=== PATIENT | female | born 1980 | race American Indian/Alaskan Native ===

== ENCOUNTER 2018-10-02 20:30 | Inpatient (IN) | payer OTHER ==
--- NOTE | 2018-10-02 20:47 | Event Note ---
ED Screening Note Date of service: 10/02/18 Time: 20:43 ED Screening Note: This is a 38 y.o. F. that presents to the ER with abdominal pain radiating to left flank and vomiting since this morning. LMP 09/28/2018 This initial assessment/diagnostic orders/clinical plan/treatment(s) is/are subject to change based on patients health status, clinical progression and re- assessment by fellow clinical providers in the ED. Further treatment and workup at subsequent clinical providers discretion. Patient/guardian urged not to elope from the ED as their condition may be serious if not clinically assessed and managed. Initial orders include: Labs and CT of abdomen
[2018-10-02 21:10] LABS: Basophils % (Auto) 0.3 % (0.0-1.8); Hematocrit 36.5 % (30.3-42.9); Lymphocytes # (Auto) 1.1 K/mm3 (1.2-5.4); Lymphocytes % (Auto) 12.9 % (13.4-35.0); Mean Corpuscular HGB Conc 36 % (30-34); Mean Corpuscular Volume 84 fl (79-97); Monocytes # (Auto) 0.4 K/mm3 (0.0-0.8); Monocytes % (Auto) 4.2 % (0.0-7.3); Platelet Count 236 K/mm3 (140-440); Red Blood Count 4.35 M/mm3 (3.65-5.03); Red Cell Distribution Width 13.4 % (13.2-15.2)
--- NOTE | 2018-10-02 21:13 | Emergency Department Report ---
ED Abdominal Pain HPI - General Chief Complaint: Abdominal Pain Stated Complaint: ABD PAIN Time Seen by Provider: 10/02/18 21:10 Source: patient Mode of arrival: Ambulatory Limitations: No Limitations - History of Present Illness Initial Comments: Patient is a 38-year-old female that presents to emergency room with complaints of left lower quadrant pain 1 day. Patient states her symptoms started this morning at 9 AM. Patient states she has had nausea and vomiting 5 today. Patient states she's had brown vomiting. Patient denies blood in her stool and her vomitus. She states her pain is 10 out of 10. Patient states is nonradiating. Patient states the pain is better with rest and worse with palpation and vomiting MD Complaint: abdominal pain -: Sudden Location: LLQ Radiation: none Migration to: no migration Severity: severe Severity scale (0 -10): 10 Consistency: constant Improves With: rest Worsens With: vomiting, movement Associated Symptoms: nausea, vomiting. denies: diarrhea, fever, chills, constipation, dysuria, hematemesis, hematochezia, melena, hematuria, syncope - Related Data Allergies Allergy/AdvReac Type Severity Reaction Status Date / Time No Known Allergies Allergy Unverified 10/02/18 20:48 ED Review of Systems ROS: Stated complaint: ABD PAIN Other details as noted in HPI Constitutional: denies: chills, fever Eyes: denies: eye pain, eye discharge, vision change ENT: denies: ear pain, throat pain Respiratory: denies: cough, shortness of breath, wheezing Cardiovascular: denies: chest pain, palpitations Endocrine: no symptoms reported Gastrointestinal: denies: abdominal pain, nausea, diarrhea Genitourinary: denies: urgency, dysuria, discharge Musculoskeletal: denies: back pain, joint swelling, arthralgia Skin: denies: rash, lesions Neurological: denies: headache, weakness, paresthesias Psychiatric: denies: anxiety, depression Hematological/Lymphatic: denies: easy bleeding, easy bruising ED Past Medical Hx - Past Medical History Previous Medical History?: Yes Hx Kidney Stones: Yes - Surgical History Past Surgical History?: Yes Additional Surgical History: Fibroidectomy - Social History Smoking Status: Never Smoker Substance Use Type: None ED Physical Exam - General Limitations: No Limitations General appearance: alert, in no apparent distress - Head Head exam: Present: atraumatic, normocephalic - Eye Eye exam: Present: normal appearance - ENT ENT exam: Present: mucous membranes moist - Neck Neck exam: Present: normal inspection - Respiratory Respiratory exam: Present: normal lung sounds bilaterally. Absent: respiratory distress, wheezes, rales - Cardiovascular Cardiovascular Exam: Present: regular rate, normal rhythm. Absent: systolic murmur, diastolic murmur, rubs, gallop - GI/Abdominal GI/Abdominal exam: Present: soft, tenderness (left lower quadrant tenderness), normal bowel sounds - Extremities Exam Extremities exam: Present: normal inspection - Back Exam Back exam: Present: normal inspection - Neurological Exam Neurological exam: Present: alert, oriented X3 - Psychiatric Psychiatric exam: Present: normal affect, normal mood - Skin Skin exam: Present: warm, dry, intact, normal color. Absent: rash ED Course Vital Signs 10/02/18 10/02/18 10/02/18 20:43 21:13 21:15 Temperature 99.7 F H 99.1 F Pulse Rate 100 H 79 Respiratory 18 14 Rate Blood Pressure 140/75 124/78 Blood Pressure 124/78 [Left] O2 Sat by Pulse 100 99 100 Oximetry 10/02/18 10/02/18 10/03/18 22:00 23:00 01:01 Temperature Pulse Rate Respiratory Rate Blood Pressure 107/83 104/53 121/69 Blood Pressure [Left] O2 Sat by Pulse 100 100 99 Oximetry - Reevaluation(s) Reevaluation #1: Initial evaluation done. Patient's work place. Patient will be given Zofran and Dilaudid For pain. 10/02/18 21:10 Reevaluation #2: Patient is complaining of severe abdominal pain and patient given another dose of Dilaudid. 10/02/18 23:00 Reevaluation #3: Patient is complaining of severe left lower quadrant pain and nausea. Patient was given another dose of Dilaudid and Zofran. 10/03/18 00:58 Reevaluation #4: I discussed all results with patient. I discussed plan of care patient. Patient agrees to plan of care and admission. Patient will be admitted to the hospitalist service. Patient will have an NG placed 10/03/18 02:22 - Consultations Consultation #1: General surgery paged 10/03/18 02:[address] Valdez and she agrees with NG and fluids, admission to hospital service. 10/03/18 02:25 10/03/18 02:26 Consultation #2: Hospitalist consult for admission. Hospitalist to see the patient and admit patient. 10/03/18 02:16 ED Medical Decision Making - Lab Data Result diagrams: 10/02/18 20:50 10/02/18 20:50 - Radiology Data Radiology results: report reviewed CT abdomen pelvis wo/w con INDICATION / CLINICAL INFORMATION: abd pain. llq. 100 cc of Omnipaque 300 was administered intravenously TECHNIQUE: All CT scans at this location are performed using CT dose reduction for ALARA by means of automated exposure control. COMPARISON: None available. FINDINGS: A small hiatal hernia is present. Multiple dilated fluid-filled loops of small bowel are present with a transition point distally. There is a high density lesion seen anteriorly at the level the umbilicus. The gallbladder has been surgically removed. The liver, spleen, kidneys, pancreas, adrenal glands and great vessels are normal. In the pelvis, no free fluid is seen. The uterus is enlarged. No enlarged lymph nodes are seen. The bladder and the appendix are normal. IMPRESSION: 1. Dilated fluid-filled small bowel with a transition point distally consistent with small bowel obstruction. There is a high density lesion seen at the level of the umbilicus in the region of the obstruction. The graft 2. Cholecystectomy - Medical Decision Making Patient is 38-year-old female that presents emergent was a belted. Patient has CT done which shows bowel obstruction. Patient has required multiple doses of Zofran and pain medications. Patient is still having nausea and vomiting even after multiple doses of Zofran. General surgery consult. NG placed. - Differential Diagnosis SBO. Radiculitis. Left lower quadrant abdominal pain. Nausea vomiting Critical Care Time: Yes Critical care attestation.: If time is entered above; I have spent that time in minutes in the direct care of this critically ill patient, excluding procedure time. Critical Care Time: 45 minutes ED Disposition Clinical Impression: Intractable abdominal pain, SBO (small bowel obstruction) Abdominal pain Qualifiers: Abdominal location: left lower quadrant Qualified Code(s): R10.32 - Left lower quadrant pain Intractable nausea and vomiting Qualifiers: Vomiting type: unspecified Qualified Code(s): R11.2 - Nausea with vomiting, unspecified Disposition: -09 OP ADMIT IP TO THIS HOSP Is pt being admited?: Yes Does the pt Need Aspirin: No Condition: Critical Time of Disposition: 02:22
[2018-10-02 21:18] LABS: Alanine Aminotransferase 5 units/L (7-56); Albumin 4.6 g/dL (3.9-5); BUN/Creatinine Ratio 13; Blood Urea Nitrogen 9 mg/dL (7-17); Calcium 10.1 mg/dL (8.4-10.2); Hemolysis Index 2
[2018-10-02] MEDS ORDERED: DILAUDID IV ONE ×2 (21:29→22:57)
[2018-10-02 21:43] LABS: Bilirubin,Urine NEG (Negative); Blood,Urine MOD (Negative); Color,Urine Yellow (Yellow); Mucus,Urine FEW /HPF; Urobilinogen,Urine < 2.0 mg/dL (<2.0)
[2018-10-02] MEDS ORDERED: NACL 0.9% 1000 ML 1,000 ML ONE (22:03)
[2018-10-02] MEDS ORDERED: ZOFRAN ONE (22:03)
[2018-10-02] MEDS ORDERED: ZOFRAN IV ONE (22:07)
[2018-10-02] MEDS ORDERED: NACL 0.9% 1000 ML 1,000 ML IV ONE (22:07)
[2018-10-03] MEDS ORDERED: ZOFRAN ONE (00:55)
[2018-10-03] MEDS ORDERED: ZOFRAN IV ONE (00:57)
[2018-10-03] MEDS ORDERED: DILAUDID IV ONE (00:57)
[2018-10-03] MEDS ORDERED: DILAUDID ONE ×2 (00:59→05:07)
--- NOTE | 2018-10-03 02:03 | Cat Scan Report ---
CT abdomen pelvis wo/w con INDICATION / CLINICAL INFORMATION: abd pain. llq. 100 cc of Omnipaque 300 was administered intravenously TECHNIQUE: All CT scans at this location are performed using CT dose reduction for ALARA by means of automated e xposure control. COMPARISON: None available. FINDINGS: A small hiatal hernia is present. Multiple dilated fluid-filled loops of small bowel are present with a transition point distally. There is a high density lesion seen anteriorly at the level the umbilic us. The gallbladder has been surgically removed. The liver, spleen, kidneys, pancreas, adrenal glands and great vessels are normal. In the pelvis, no free fluid is seen. The uterus is enlarged. No enlarged lymph nodes are seen. The b ladder and the appendix are normal. IMPRESSION: 1. Dilated fluid-filled small bowel with a transition point distally consistent with small bowel obst ruction. There is a high density lesion seen at the level of the umbilicus in the region of the obstr uction. The graft 2. Cholecystectomy Signer Name: Eddie Giraldo MD FACR Signed: 10/03/2018 1:59 AM Workstation Name: [id number]
[2018-10-03] MEDS ORDERED: NACL 0.9% 1000 ML 1,000 ML IV ONE ×2 (02:21→16:33)
[2018-10-03] MEDS ORDERED: MORPHINE ONE (02:35)
[2018-10-03] MEDS ORDERED: MORPHINE IV PRN (02:36)
[2018-10-03] MEDS ORDERED: REGLAN IV PRN (02:36)
[2018-10-03] MEDS ORDERED: TYLENOL PR PRN (02:36)
[2018-10-03] MEDS ORDERED: SODIUM CHLORIDE FLUSH SYRINGE 10 ML IV PRN (02:36)
--- NOTE | 2018-10-03 02:39 | History and Physical Report ---
History of Present Illness Date of examination: 10/03/18 History of present illness: 38 -year-old woman with a no medical history comes to the emergency room with complaints of abdominal pain that started yesterday. Pain is in the LLQ, constant, crampy, with intensity of 8/10, radiating to the back, relieved with pain medications. Admits to nausea, vomiting Review of systems Constitutional: no weight loss, fever, chills Ears, eyes, nose, mouth and throat: no nasal congestion, no nasal discharge, no sinus pressure, no vision change, no red eye. Neck: No neck pain or rigidity. Cardiovascular: no palpitations, chest pain Respiratory: no cough, shortness of breath Gastrointestinal: no hematochezia Genitourinary : no frequency , no hematuria Musculoskeletal: no joint swelling or muscle ache Integumentary: no rash, no pruritis Neurological: no parathesias, no focal weakness Endocrine: no cold or heat intolerance, no polyuria or polydipsia Hematologic/Lymphatic: no easy bruising, no easy bleeding, no gland swelling Allergic/Immunologic: no urticaria, no angioedema. PAST MEDICAL HISTORY: None PAST SURGICAL HISTORY: fibroidectomy, GB SOCIAL HISTORY: Denies alcohol, tobacco or drug use FAMILY HISTORY: Hypertension Medications and Allergies Allergies Allergy/AdvReac Type Severity Reaction Status Date / Time No Known Allergies Allergy Unverified 10/02/18 20:48 Home Medications Medication Instructions Recorded Confirmed Last Taken Type No Known Home Medications [No 10/03/18 10/03/18 Unknown History Reported Home Medications] Active Meds: Active Medications Sodium Chloride (Nacl 0.9% 1000 Ml) 1,000 mls @ 999 mls/hr IV BOLUS ONE Stop: 10/03/18 03:21 Morphine Sulfate (Morphine) 2 mg IV Q4H PRN PRN Reason: Pain, Moderate (4-6) Exam - Physical Exam Narrative exam: Gen. appearance: Patient lying in bed, no apparent distress HEENT: Normocephalic, atraumatic, pupils equally round and reactive to light, extraocular movement intact, and no sclericterus,. No JVD or thyromegaly or nodule,neck supple, no carotid bruit ,mucous membranes moist, no exudate or erythema Heart: S1, S2, regular rate and rhythm Lungs: Clear to auscultation bilaterally, breathing comfortable Abdomen: Positive bowel sounds, nontender, nondistended, no organomegaly Extremity: No edema, cyanosis, clubbing Skin: No rash, nodules, warm, dry Neuro: Oriented 3, cranial nerves II-12 intact, speech/motor fluent, - Constitutional Vitals: Temp Pulse Resp BP Pulse Ox 99.1 F 79 14 121/69 99 10/02/18 21:15 10/02/18 21:15 10/02/18 21:15 10/03/18 01:01 10/03/18 01:01 General appearance: Present: no acute distress Results - Labs CBC & Chem 7: 10/05/18 02:55 10/05/18 02:55 Labs: Abnormal lab results 10/02/18 10/02/18 10/02/18 Range/Units 20:50 20:50 21:00 MCHC 36 H (30-34) % Lymph % (Auto) 12.9 L (13.4-35.0) % Lymph # 1.1 L (1.2-5.4) K/mm3 Seg Neutrophils % 82.6 H (40.0-70.0) % Glucose 101 H (65-100) mg/dL ALT 5 L (7-56) units/L Total Protein 8.3 H (6.3-8.2) g/dL Urine pH 9.0 H (5.0-7.0) - Imaging and Cardiology CT scan - abdomen: report reviewed CT scan - pelvis: report reviewed Assessment and Plan Assessment Small bowel obstruction Plan Bowel rest, IV fluid, IV morphine Surgery was consulted, DVT prophalaxis
[2018-10-03] MEDS ORDERED: NACL 0.9% 1000 ML 1,000 ML ONE (03:39)
[2018-10-03] MEDS ORDERED: REGLAN ONE (05:08)
[2018-10-03] MEDS: DILAUDID IV PRN ×7 (05:10→22:31)
[2018-10-03 06:53] LABS: Basophils % (Auto) 0.4 % (0.0-1.8); Eosinophils % (Auto) 0.1 % (0.0-4.3); Hematocrit 38.2 % (30.3-42.9); Hemoglobin 12.7 gm/dl (10.1-14.3); Lymphocytes # (Auto) 0.8 K/mm3 (1.2-5.4); Lymphocytes % (Auto) 9.8 % (13.4-35.0); Mean Corpuscular HGB Conc 33 % (30-34); Mean Corpuscular Volume 87 fl (79-97); Monocytes # (Auto) 0.3 K/mm3 (0.0-0.8); Red Blood Count 4.37 M/mm3 (3.65-5.03); Red Cell Distribution Width 13.8 % (13.2-15.2)
[2018-10-03 07:15] LABS: Platelet Count 152 K/mm3 (140-440)
[2018-10-03 07:26] LABS: BUN/Creatinine Ratio 20; Blood Urea Nitrogen 10 mg/dL (7-17); Calcium 8.8 mg/dL (8.4-10.2); Hemolysis Index 33
[2018-10-03] MEDS: NACL 0.9% 1000 ML 1,000 ML IV SCH (08:01)
[2018-10-03] MEDS: SODIUM CHLORIDE FLUSH SYRINGE 10 ML IV SCH ×2 (10:02→22:32)
--- NOTE | 2018-10-03 10:51 | Consultation ---
History of Present Illness Consult date: 10/03/18 Reason for consult: other (sbo) Chief complaint: abdominal pain - History of present illness History of present illness: 38 year old female admitted to the ER with a one day hx of abdominal pain, n/v. Work up with CT showed a small bowel obstruction. She says she has had a bowel obstruction before that resolved after non operative management. She says she is currently feeling a bit better, but still has intermittent sharp pains in her left lower abdomen. She cannot recall the last time she passed flatus. Past History Past Medical History: No medical history Past Surgical History: Other (lap cholecystectomy, open fibroidectomy) Social history: no significant social history Family history: no significant family history Medications and Allergies Allergies Allergy/AdvReac Type Severity Reaction Status Date / Time No Known Allergies Allergy Unverified 10/02/18 20:48 Home Medications Medication Instructions Recorded Confirmed Last Taken Type No Known Home Medications [No 10/03/18 10/03/18 Unknown History Reported Home Medications] Active Meds: Active Medications Acetaminophen (Tylenol) 650 mg DC Q4H PRN PRN Reason: Pain MILD(1-3)/Fever >100.5/GONCALVES Enoxaparin Sodium (Lovenox) 40 mg SUB-Q QDAY [facility] Hydromorphone HCl (Dilaudid) 1 mg IV Q3H PRN PRN Reason: Pain , Severe (7-10) Sodium Chloride (Nacl 0.9% 1000 Ml) 1,000 mls @ 125 mls/hr IV DIRECT [facility] Last Admin: 10/03/18 08:01 Dose: 125 mls/hr Documented by: Ondansetron HCl (Zofran) 4 mg IV Q4H PRN PRN Reason: Nausea And Vomiting Prochlorperazine Edisylate (Compazine) 5 mg IV Q4H PRN PRN Reason: Nausea And Vomiting Sodium Chloride (Sodium Chloride Flush Syringe 10 Ml) 10 ml IV BID [facility] Last Admin: 10/03/18 10:02 Dose: 10 ml Documented by: Sodium Chloride (Sodium Chloride Flush Syringe 10 Ml) 10 ml IV PRN PRN PRN Reason: LINE FLUSH Review of Systems - Constitutional no weight loss, no fever - Respiratory no shortness of breath - Gastrointestinal abdominal pain, nausea, vomiting Exam Vital Signs Temp Pulse Resp BP Pulse Ox 99.7 F H 100 H 18 140/75 100 10/02/18 20:43 10/02/18 20:43 10/02/18 20:43 10/02/18 20:43 10/02/18 20:43 - General physical appearance Positive: well developed, well nourished, no distress - Respiratory Positive: normal expansion, normal respiratory effort - Abdomen Abdomen: Present: soft, other (long vertical hypertophied midline scar, tender to deep palpation LLQ. NGT with 150cc bilious drainage). Absent: guarding, rigid Results - Labs 10/03/18 06:10 10/03/18 06:10 Abnormal lab results 10/02/18 10/02/18 10/02/18 Range/Units 20:50 20:50 21:00 MCHC 36 H (30-34) % Lymph % (Auto) 12.9 L (13.4-35.0) % Lymph # 1.1 L (1.2-5.4) K/mm3 Seg Neutrophils % 82.6 H (40.0-70.0) % Chloride (98-107) mmol/L Carbon Dioxide (22-30) mmol/L Creatinine (0.7-1.2) mg/dL Glucose 101 H (65-100) mg/dL ALT 5 L (7-56) units/L Total Protein 8.3 H (6.3-8.2) g/dL Urine pH 9.0 H (5.0-7.0) 10/03/18 10/03/18 Range/Units 06:10 06:10 MCHC (30-34) % Lymph % (Auto) 9.8 L (13.4-35.0) % Lymph # 0.8 L (1.2-5.4) K/mm3 Seg Neutrophils % 85.7 H (40.0-70.0) % Chloride 108.9 H (98-107) mmol/L Carbon Dioxide 20 L (22-30) mmol/L Creatinine 0.5 L (0.7-1.2) mg/dL Glucose 101 H (65-100) mg/dL ALT (7-56) units/L Total Protein (6.3-8.2) g/dL Urine pH (5.0-7.0) Diabetes panel 10/02/18 10/03/18 Range/Units 20:50 06:10 Sodium 140 142 (137-145) mmol/L Potassium 3.9 3.7 (3.6-5.0) mmol/L Chloride 103.4 108.9 H (98-107) mmol/L Carbon Dioxide 23 20 L (22-30) mmol/L BUN 9 10 (7-17) mg/dL Creatinine 0.7 0.5 L (0.7-1.2) mg/dL Glucose 101 H 101 H (65-100) mg/dL Calcium 10.1 8.8 (8.4-10.2) mg/dL AST 16 (5-40) units/L ALT 5 L (7-56) units/L Alkaline Phosphatase 63 (35-129) units/L Total Protein 8.3 H (6.3-8.2) g/dL Albumin 4.6 (3.9-5) g/dL Calcium panel 10/02/18 10/03/18 Range/Units 20:50 06:10 Calcium 10.1 8.8 (8.4-10.2) mg/dL Albumin 4.6 (3.9-5) g/dL Pituitary panel 10/02/18 10/03/18 Range/Units 20:50 06:10 Sodium 140 142 (137-145) mmol/L Potassium 3.9 3.7 (3.6-5.0) mmol/L Chloride 103.4 108.9 H (98-107) mmol/L Carbon Dioxide 23 20 L (22-30) mmol/L BUN 9 10 (7-17) mg/dL Creatinine 0.7 0.5 L (0.7-1.2) mg/dL Glucose 101 H 101 H (65-100) mg/dL Calcium 10.1 8.8 (8.4-10.2) mg/dL Adrenal panel 10/02/18 10/03/18 Range/Units 20:50 06:10 Sodium 140 142 (137-145) mmol/L Potassium 3.9 3.7 (3.6-5.0) mmol/L Chloride 103.4 108.9 H (98-107) mmol/L Carbon Dioxide 23 20 L (22-30) mmol/L BUN 9 10 (7-17) mg/dL Creatinine 0.7 0.5 L (0.7-1.2) mg/dL Glucose 101 H 101 H (65-100) mg/dL Calcium 10.1 8.8 (8.4-10.2) mg/dL Total Bilirubin 0.70 (0.1-1.2) mg/dL AST 16 (5-40) units/L ALT 5 L (7-56) units/L Alkaline Phosphatase 63 (35-129) units/L Total Protein 8.3 H (6.3-8.2) g/dL Albumin 4.6 (3.9-5) g/dL - Imaging CT scan - abdomen: report reviewed, image reviewed (small bowel obstruction with transition point in the left lower quadrant with a notable lesion in the area) Assessment and Plan Small bowel obstruction - stable, afebrile, continue conservative management with NGT, IV hydration. Will review CT with radiologist to get more information on notable mass near obstruction. If significant will likely need ex lap this admission for exploration and removal. will continue to follow.
[2018-10-03] MEDS: ZOFRAN IV PRN ×2 (10:52→22:33)
[2018-10-03] MEDS: LOVENOX SUB-Q SCH (10:52)
[2018-10-03] MEDS ORDERED: COMPAZINE IV PRN (11:00)
--- NOTE | 2018-10-03 16:26 | Event Note ---
Date: 10/03/18 Small bowel obstruction Plan Bowel rest, IV fluid, IV morphine Surgery was consulted, DVT prophalaxis
[2018-10-03] MEDS ORDERED: DILAUDID IV PRN (16:33)
[2018-10-04] MEDS: NACL 0.9% 1000 ML 1,000 ML IV SCH ×3 (00:25→20:04)
[2018-10-04] MEDS: DILAUDID IV PRN ×8 (01:44→23:33)
[2018-10-04] MEDS: LOVENOX SUB-Q SCH ×2 (08:31→10:00)
[2018-10-04 09:50] LABS: Basophils % (Auto) 0.2 % (0.0-1.8); Eosinophils % (Auto) 0.5 % (0.0-4.3); Hematocrit 33.9 % (30.3-42.9); Hemoglobin 11.4 gm/dl (10.1-14.3); Lymphocytes % (Auto) 11.6 % (13.4-35.0); Mean Corpuscular HGB Conc 34 % (30-34); Mean Corpuscular Volume 86 fl (79-97); Monocytes # (Auto) 0.6 K/mm3 (0.0-0.8); Monocytes % (Auto) 7.3 % (0.0-7.3); Platelet Count 203 K/mm3 (140-440); Red Blood Count 3.94 M/mm3 (3.65-5.03); Red Cell Distribution Width 13.4 % (13.2-15.2)
[2018-10-04] MEDS: SODIUM CHLORIDE FLUSH SYRINGE 10 ML IV SCH ×2 (10:00→21:34)
[2018-10-04 10:02] LABS: BUN/Creatinine Ratio 15; Blood Urea Nitrogen 9 mg/dL (7-17); Hemolysis Index 10
--- NOTE | 2018-10-04 11:04 | Progress Note ---
Assessment and Plan small bowel obstruction - stable, afebrile, with no clinical improvement as yet. unclear if obstruction due to adhesions from previous surgery, or related to lesion seen on CT scan. Have not been able to discuss findings with radiologist to get more clarity on mass seen in CT scan since it is the weekend. Will review scan with radiology tomorrow to get more information, especially since she says she has been told she has a mass in her abdomen in the past. will continue NGT drainage, IV hydration, and encourage ambulation. Subjective Date of service: 10/04/18 Patient Reports: Positive: no flatus, no bowel movement, other (pt said she had a lot of pain last night, feels a little better this morning. She mentioned that last year during her last bowel obstruction episode in [place], they told her she had a mass in her abdomen that they feel may be an 'old fibroid'. She says if at all possible she would like to avoid surgery. ) Objective Vital Signs - 12hr 10/04/18 10/04/18 10/04/18 00:19 04:26 08:22 Temperature 97.8 F 97.8 F 98.6 F Pulse Rate 86 86 71 Respiratory 18 18 18 Rate Blood Pressure 144/92 121/60 118/64 O2 Sat by Pulse 100 96 100 Oximetry 10/04/18 08:23 Temperature Pulse Rate 67 Respiratory Rate Blood Pressure O2 Sat by Pulse 100 Oximetry - General physical appearance well developed, no distress, moderate pain - Respiratory normal expansion, normal respiratory effort - Abdomen soft, not guarding, not rigid, other (tender to deep palpation on the left side, about 600cc bilious drainage last 24 hours. ) - Labs 10/04/18 09:20 10/04/18 09:20 Diabetes panel 10/04/18 Range/Units 09:20 Sodium 141 (137-145) mmol/L Potassium 3.4 L (3.6-5.0) mmol/L Chloride 106.5 (98-107) mmol/L Carbon Dioxide 23 (22-30) mmol/L BUN 9 (7-17) mg/dL Creatinine 0.6 L (0.7-1.2) mg/dL Glucose 92 (65-100) mg/dL Calcium 8.0 L (8.4-10.2) mg/dL Calcium panel 10/04/18 Range/Units 09:20 Calcium 8.0 L (8.4-10.2) mg/dL Pituitary panel 10/04/18 Range/Units 09:20 Sodium 141 (137-145) mmol/L Potassium 3.4 L (3.6-5.0) mmol/L Chloride 106.5 (98-107) mmol/L Carbon Dioxide 23 (22-30) mmol/L BUN 9 (7-17) mg/dL Creatinine 0.6 L (0.7-1.2) mg/dL Glucose 92 (65-100) mg/dL Calcium 8.0 L (8.4-10.2) mg/dL Adrenal panel 10/04/18 Range/Units 09:20 Sodium 141 (137-145) mmol/L Potassium 3.4 L (3.6-5.0) mmol/L Chloride 106.5 (98-107) mmol/L Carbon Dioxide 23 (22-30) mmol/L BUN 9 (7-17) mg/dL Creatinine 0.6 L (0.7-1.2) mg/dL Glucose 92 (65-100) mg/dL Calcium 8.0 L (8.4-10.2) mg/dL
--- NOTE | 2018-10-04 12:38 | Progress Note ---
Assessment and Plan - Patient Problems (1) SBO (small bowel obstruction) Current Visit: Yes Status: Acute Plan to address problem: NGT to low suction IV fluids for now and pain control Surgery consult appreciated (2) Renal stones Current Visit: Yes Status: Chronic Plan to address problem: Asymptomatic (3) Hypokalemia Current Visit: Yes Status: Acute Plan to address problem: Supplemented (4) DVT prophylaxis Current Visit: Yes Status: Acute Plan to address problem: On scd's and GI prophylaxis Subjective Date of service: 10/04/18 Principal diagnosis: SBO Interval history: Admitted for Small bowel obstruction - stable, afebrile, with no clinical improvement as yet. unclear if obstruction due to adhesions from previous surgery, or related to lesion seen on CT scan. will continue NGT drainage, IV hydration, and encourage ambulation. Objective - Constitutional Vitals: Vital Signs - 12hr 10/04/18 10/04/18 10/04/18 04:26 08:22 08:23 Temperature 97.8 F 98.6 F Pulse Rate 86 71 67 Respiratory 18 18 Rate Blood Pressure 121/60 118/64 O2 Sat by Pulse 96 100 100 Oximetry General appearance: Present: no acute distress, well-nourished - EENT Eyes: PERRL, EOM intact ENT: hearing intact, clear oral mucosa Ears: bilateral: normal - Neck Neck: supple, normal ROM - Respiratory Respiratory effort: normal Respiratory: bilateral: CTA - Breasts Breasts: normal - Cardiovascular Rhythm: regular Heart Sounds: Present: S1 & S2. Absent: gallop, rub Extremities: pulses intact, No edema, normal color, Full ROM - Gastrointestinal General gastrointestinal: Present: soft, tender, non-distended, normal bowel sounds, hypoactive bowel sounds Localized gastrointestinal: tender: diffuse - Genitourinary Female genitourinary: deferred, normal - Integumentary Integumentary: clear, warm, dry - Musculoskeletal Musculoskeletal: 1, strength equal bilaterally - Neurologic Neurologic: moves all extremities - Psychiatric Psychiatric: memory intact, appropriate mood/affect, intact judgment & insight - Labs CBC & Chem 7: 10/04/18 09:20 10/04/18 09:20 Labs: Abnormal lab results 10/04/18 10/04/18 Range/Units 09:20 09:20 Lymph % (Auto) 11.6 L (13.4-35.0) % Lymph # 1.0 L (1.2-5.4) K/mm3 Seg Neutrophils % 80.4 H (40.0-70.0) % Potassium 3.4 L (3.6-5.0) mmol/L Creatinine 0.6 L (0.7-1.2) mg/dL Calcium 8.0 L (8.4-10.2) mg/dL
[2018-10-04] MEDS ORDERED: K-DUR PO NR (12:46)
[2018-10-04] MEDS: ZOFRAN IV PRN (20:07)
[2018-10-05] MEDS: DILAUDID IV PRN ×4 (03:07→12:46)
[2018-10-05 03:16] LABS: Basophils % (Auto) 0.3 % (0.0-1.8); Eosinophils % (Auto) 0.3 % (0.0-4.3); Hemoglobin 11.5 gm/dl (10.1-14.3); Lymphocytes # (Auto) 1.1 K/mm3 (1.2-5.4); Lymphocytes % (Auto) 12.5 % (13.4-35.0); Mean Corpuscular HGB Conc 33 % (30-34); Mean Corpuscular Volume 86 fl (79-97); Monocytes # (Auto) 0.6 K/mm3 (0.0-0.8); Monocytes % (Auto) 6.5 % (0.0-7.3); Platelet Count 200 K/mm3 (140-440); Red Blood Count 4.06 M/mm3 (3.65-5.03); Red Cell Distribution Width 13.4 % (13.2-15.2)
[2018-10-05 03:43] LABS: BUN/Creatinine Ratio 13; Blood Urea Nitrogen 8 mg/dL (7-17); Calcium 8.4 mg/dL (8.4-10.2); Hemolysis Index 39
[2018-10-05 03:46] LABS: Alanine Aminotransferase < 5 units/L (7-56)
[2018-10-05] MEDS: NACL 0.9% 1000 ML 1,000 ML IV SCH ×2 (04:32→12:53)
[2018-10-05] MEDS: ZOFRAN IV PRN ×2 (06:25→12:46)
[2018-10-05] MEDS: LOVENOX SUB-Q SCH (09:40)
[2018-10-05] MEDS: SODIUM CHLORIDE FLUSH SYRINGE 10 ML IV SCH ×2 (10:23→22:25)
--- NOTE | 2018-10-05 11:17 | Progress Note ---
Assessment and Plan 1. Mechanical small bowel obstruction, likely due to a combination of adhesions and mass effect from lesion. Since she is not progressing and cause related to mass recommend taking to surgery for dx lap possible open for relief of obstruct ion and removal of mass. She expressed hesitation as she is a single mother and wants to get back to work, but explained to her at length that this is HD #3 and she has not made any progress and this is less likely to resolve on its own if the mass is playing the major role in the cause of obstruction. She agreed to go ahead with the surgery. She is scheduled for later today. Subjective Date of service: 10/05/18 Patient Reports: Positive: still having pain, no flatus Narrative: No acute events overnight, Pt says she continues to have significant pain requiring q3 hour dilaudid, and she has not passed any flatus. I reviewed the CT scan with radiologist, and the mass that is visible is of unclear etiology, likely benign, appears to coming from mesentery, and also compressing small bowel playing a part in the obstruction. Objective Vital Signs - 12hr 10/05/18 10/05/18 10/05/18 04:24 08:05 09:40 Temperature 97.9 F 98.1 F Pulse Rate 92 H 82 Respiratory 18 18 Rate Respiratory 20 Rate [Left Abdomen] Blood Pressure 128/70 127/62 O2 Sat by Pulse 97 100 Oximetry 10/05/18 09:43 Temperature Pulse Rate Respiratory 20 Rate Respiratory Rate [Left Abdomen] Blood Pressure O2 Sat by Pulse Oximetry - General physical appearance well developed, no distress - Respiratory normal expansion, normal respiratory effort - Abdomen soft (tender to palpation left side, >500cc bilious drainage from NGT. ) - Labs 10/05/18 02:55 10/05/18 02:55 Diabetes panel 10/05/18 Range/Units 02:55 Sodium 144 (137-145) mmol/L Potassium 3.7 (3.6-5.0) mmol/L Chloride 104.4 (98-107) mmol/L Carbon Dioxide 25 (22-30) mmol/L BUN 8 (7-17) mg/dL Creatinine 0.6 L (0.7-1.2) mg/dL Glucose 66 (65-100) mg/dL Calcium 8.4 (8.4-10.2) mg/dL AST 17 (5-40) units/L ALT < 5 L (7-56) units/L Alkaline Phosphatase 54 (35-129) units/L Total Protein 6.6 D (6.3-8.2) g/dL Albumin 4.0 (3.9-5) g/dL Calcium panel 10/05/18 Range/Units 02:55 Calcium 8.4 (8.4-10.2) mg/dL Albumin 4.0 (3.9-5) g/dL Pituitary panel 10/05/18 Range/Units 02:55 Sodium 144 (137-145) mmol/L Potassium 3.7 (3.6-5.0) mmol/L Chloride 104.4 (98-107) mmol/L Carbon Dioxide 25 (22-30) mmol/L BUN 8 (7-17) mg/dL Creatinine 0.6 L (0.7-1.2) mg/dL Glucose 66 (65-100) mg/dL Calcium 8.4 (8.4-10.2) mg/dL Adrenal panel 10/05/18 Range/Units 02:55 Sodium 144 (137-145) mmol/L Potassium 3.7 (3.6-5.0) mmol/L Chloride 104.4 (98-107) mmol/L Carbon Dioxide 25 (22-30) mmol/L BUN 8 (7-17) mg/dL Creatinine 0.6 L (0.7-1.2) mg/dL Glucose 66 (65-100) mg/dL Calcium 8.4 (8.4-10.2) mg/dL Total Bilirubin 0.80 (0.1-1.2) mg/dL AST 17 (5-40) units/L ALT < 5 L (7-56) units/L Alkaline Phosphatase 54 (35-129) units/L Total Protein 6.6 D (6.3-8.2) g/dL Albumin 4.0 (3.9-5) g/dL
[2018-10-05] MEDS ORDERED: LEVAQUIN 500MG/100ML 500 MG/100 ML BAG IV NR (13:00)
[2018-10-05] MEDS ORDERED: ZOFRAN IV PRN (14:07)
[2018-10-05] MEDS ORDERED: DILAUDID IV PRN (14:07)
--- NOTE | 2018-10-05 14:10 | Anesthesia Day of Surgery ---
Anesthesia Day of Surgery - Day of Surgery Patient Examined: Yes Patient H&P Reviewed: Yes Patient is NPO: Yes
--- NOTE | 2018-10-05 14:15 | Anesthesia Consultation ---
Anesthesia Consult and Med Hx Date of service: 10/05/18 - Airway Anesthetic Teeth Evaluation: Good ROM Head & Neck: Adequate Mental/Hyoid Distance: Adequate Mallampati Class: Class II Intubation Access Assessment: Probably Good - Pre-Operative Health Status ASA Pre-Surgery Classification: ASA1 Proposed Anesthetic Plan: General Nerve Block: TAP (If open case) - Central Nervous System Hx Psychiatric Problems: No - Hematic Hx Sickle Cell Disease: No
[2018-10-05] MEDS ORDERED: NACL 0.9% 1000 ML 1,000 ML ONE ×2 (14:25→17:01)
[2018-10-05] MEDS ORDERED: LACTATED RINGERS 1,000 ML IV SCH (15:00)
[2018-10-05] MEDS ORDERED: VERSED IV NR (15:00)
[2018-10-05] MEDS ORDERED: MORPHINE IV ONE (15:15)
[2018-10-05] MEDS ORDERED: XYLOCAINE 1% 20 mL ONE (15:20)
[2018-10-05] MEDS ORDERED: MARCAINE-EPI 0.5%-1:200,000 INFILTRATI ONE ×2 (15:20→15:55)
--- NOTE | 2018-10-05 15:21 | Progress Note ---
Assessment and Plan - Patient Problems (1) SBO (small bowel obstruction) Current Visit: Yes Status: Acute Plan to address problem: Had surgery for removal of adhesions and Abd mass (2) Renal stones Current Visit: Yes Status: Chronic Plan to address problem: Asymptomatic (3) Hypokalemia Current Visit: Yes Status: Acute Plan to address problem: Supplemented (4) DVT prophylaxis Current Visit: Yes Status: Acute Plan to address problem: On scd's and GI prophylaxis Subjective Date of service: 10/05/18 Principal diagnosis: SBO Interval history: Admitted for Small bowel obstruction - stable, afebrile, with no clinical improvement as yet. unclear if obstruction due to adhesions from previous surgery, or related to lesion seen on CT scan. will continue NGT drainage, IV hydration, and encourage ambulation. Did not pass any flatus. Objective - Constitutional Vitals: Vital Signs - 12hr 10/05/18 10/05/18 10/05/18 04:24 08:05 09:40 Temperature 97.9 F 98.1 F Pulse Rate 92 H 82 Respiratory 18 18 Rate Respiratory 20 Rate [Left Abdomen] Blood Pressure 128/70 127/62 O2 Sat by Pulse 97 100 Oximetry 10/05/18 10/05/18 10/05/18 09:43 12:46 13:50 Temperature 98.8 F Pulse Rate 73 Respiratory 20 18 14 Rate Respiratory Rate [Left Abdomen] Blood Pressure 137/70 O2 Sat by Pulse 100 Oximetry 10/05/18 10/05/18 13:55 14:42 Temperature 98.8 F Pulse Rate 73 Respiratory 14 14 Rate Respiratory Rate [Left Abdomen] Blood Pressure 137/70 O2 Sat by Pulse 100 Oximetry General appearance: Present: no acute distress, well-nourished - EENT Eyes: PERRL, EOM intact ENT: hearing intact, clear oral mucosa Ears: bilateral: normal - Neck Neck: supple, normal ROM - Respiratory Respiratory effort: normal Respiratory: bilateral: CTA - Breasts Breasts: normal - Cardiovascular Rhythm: regular Heart Sounds: Present: S1 & S2. Absent: gallop, rub Extremities: pulses intact, No edema, normal color, Full ROM - Gastrointestinal General gastrointestinal: Present: soft, tender, non-distended, normal bowel so unds, hypoactive bowel sounds - Genitourinary Female genitourinary: normal - Integumentary Integumentary: clear, warm, dry - Musculoskeletal Musculoskeletal: 1, strength equal bilaterally - Neurologic Neurologic: moves all extremities - Psychiatric Psychiatric: memory intact, appropriate mood/affect, intact judgment & insight - Labs CBC & Chem 7: 10/05/18 02:55 10/05/18 02:55 Labs: Abnormal lab results 10/05/18 10/05/18 Range/Units 02:55 02:55 Lymph % (Auto) 12.5 L (13.4-35.0) % Lymph # 1.1 L (1.2-5.4) K/mm3 Seg Neutrophils % 80.4 H (40.0-70.0) % Creatinine 0.6 L (0.7-1.2) mg/dL ALT < 5 L (7-56) units/L
[2018-10-05] MEDS ORDERED: DILAUDID ONE (15:23)
[2018-10-05] MEDS ORDERED: DIPRIVAN 10 MG/ML IV ONE (15:24)
[2018-10-05] MEDS ORDERED: QUELICIN ONE (15:24)
[2018-10-05] MEDS ORDERED: ZEMURON IV ONE (15:25)
[2018-10-05] MEDS ORDERED: XYLOCAINE MPF 2% ONE (15:47)
[2018-10-05] MEDS ORDERED: XYLOCAINE 1% 20 mL INFILTRATI ONE (15:55)
[2018-10-05] MEDS ORDERED: BLOXIVERZ ONE (16:55)
[2018-10-05] MEDS ORDERED: ROBINUL ONE (16:55)
[2018-10-05] MEDS ORDERED: ZOFRAN ONE (16:58)
[2018-10-05] MEDS ORDERED: TORADOL ONE (17:00)
--- NOTE | 2018-10-05 17:20 | Operative Report ---
Operative Report Operative Report: DATE: 10/05/18 PRE-OP DX: SMALL BOWEL OBSTRUCTION POST-OP DX: SAME ABOVE SURGEON: LAI HAGAN MD CLINICAL ACADEMIC ALLERGIST SURGEON: LA AARON DO PROCEDURE: DIAGNOSTIC LAPAROSCOPY WITH LYSIS OF ADHESIONS AND RESECTION OF MESENTERIC MASS EBL: <20ML ANESTHESIA: GETA SPECIMEN: MESENTERIC MASS FINDINGS: SMALL BOWEL OBSTRUCTION DUE TO ADHESIVE BAND TETHERED TO MESENTERIC MASS COMPLICATION: NONE IMMEDIATE INDICATION: 38 YO FEMALE PRESENTED WITH SMALL BOWEL OBSTRUCTION AND CALCIFIED MASS AT SIGHT OF OBSTRUCTION. SHE WAS CONSENTED AND TAKEN FOR EXPLORATION AFTER 48 HOURS OF CONSERVATIVE MANAGEMENT. SHE WAS HESITANT TO HAVE SURGERY INITIALLY. DETAILS: PT WAS TAKEN INTO OR AND LAID IN SUPINE POSITION. BILATERAL SCD WERE PLACED AND GENERAL ANESTHESIA WAS SUCCESSFULLY PERFORMED WITH ENDOTRACHEAL INTUBATION. LISA CATHETER WAS PLACED UNDER STERILE CONDITIONS AND ARMS WERE TUCKED AT HER SIDES WITH ALL PRESSURE POINTS PADDED. AFTER TIME OUT, A VERESS NEEDLE WAS USED TO INSUFLATE THE ABDOMEN TO A PRESSURE OF 15MMHG VIA A STAB INCISION OF THE LUQ. USING OPTIVIEW TECHNIQUE A 5MM TROCAR WAS INSERTED ON THE R IGHT SIDE. THERE WAS NO GROSS INJURY TO AN ABDOMINAL STRUCTURES. THREE WORKING TROCARS WERE PLACED, 5MM IN THE RLQ, UMBILICUS, AND LEFT SIDE. THERE WAS NOTED TO BE MINIMAL ADHESIONS FROM HER PREVIOUS EX LAP SURGERY. USING A LIGASURE DEVICE THE FLIMSY ADHESIONS WERE EASILY TAKEN DOWN. THE LIGAMENT OF TRIEZ WAS IDENTIFIED AND THE BOWEL WAS RUN DISTALLY. THERE WAS NOTED TO BE A TANGLE OF SMALL BOWEL HELD TOGETHER BY AN SHORT ADHESIVE BAND. THIS BAND WAS CUT AND IMMEDIATELY RELIEVED THE OBSTRUCTION. THE BOWEL WAS INSPECTED, A SUPERFICIAL MESENTERIC MASS WAS APPRECIATED. IT WAS RESECTED FROM THE SURROUNDING TISSUE WITH THE LIGASURE WITHOUT COMPROMISE TO THE MESENTERY OR BOWEL WALL. THE ABDOMEN WAS INSPECTED AND THERE WAS NO ACTIVE BLEEDING. DUE TO THE SIZE OF THE MASS IT WAS DECIDED TO MAKE A 4CM INCISION AT THE UMBILICUS TO REMOVE THE MASS. THIS WAS DONE WITHOUT COMPLICATION. IT MEASURED ABOUT 5X3CM. THE FASCIA WAS CLOSED WITH 0 VICRYL, AND SKIN WAS CLOSED WITH 4-O MONOCRYL FOLLOWED BY DERMABOND. PT WAS EXTUBATED, TAKEN TO RECOVERY IN STABLE CONDITION. ALL COUNTS WERE CORRECT.
--- NOTE | 2018-10-05 18:49 | Post Anesthesia Evaluation ---
- Post Anesthesia Evaluation Patient Participated: Yes Airway Patent: Yes Stable Respiratory Function: Yes Nausea/Vomiting: No Temp > 96.8F: Yes Pain Manageable: Yes Adequeate Hydration: Yes Anesthesia Complications: No Block Receding Appropriately: Not Applicable Patient on Ventilator: No
[2018-10-05] MEDS: TORADOL IV SCH (22:24)
[2018-10-06 05:15] LABS: Basophils % (Auto) 0.1 % (0.0-1.8); Eosinophils % (Auto) 0.6 % (0.0-4.3); Hematocrit 29.8 % (30.3-42.9); Lymphocytes % (Auto) 13.6 % (13.4-35.0); Mean Corpuscular HGB Conc 34 % (30-34); Mean Corpuscular Volume 85 fl (79-97); Monocytes # (Auto) 0.6 K/mm3 (0.0-0.8); Monocytes % (Auto) 7.7 % (0.0-7.3); Platelet Count 199 K/mm3 (140-440); Red Blood Count 3.49 M/mm3 (3.65-5.03); Red Cell Distribution Width 13.1 % (13.2-15.2)
[2018-10-06 05:37] LABS: BUN/Creatinine Ratio 12; Blood Urea Nitrogen 6 mg/dL (7-17); Calcium 7.8 mg/dL (8.4-10.2); Hemolysis Index 3
[2018-10-06] MEDS: TORADOL IV SCH ×4 (06:14→23:57)
[2018-10-06] MEDS: LOVENOX SUB-Q SCH (09:08)
[2018-10-06] MEDS: SODIUM CHLORIDE FLUSH SYRINGE 10 ML IV SCH ×2 (10:12→23:14)
[2018-10-06] MEDS: KCL 10MEQ/100ML 10 MEQ/100 ML BAG IV SCH ×2 (10:46→13:35)
--- NOTE | 2018-10-06 11:34 | Progress Note ---
Assessment and Plan POD# <1 s/p dx lap with lysis of adhesive band and resection of mesenteric mass. stable, afebrile, with post op ileus. will await return of bowel function, will perform ngt clamping trial and check residuals every 4 hours. encouraged ambulation, and using dilaudid only when needed to help speed up bowel recovery. Subjective Date of service: 10/06/18 Patient Reports: Positive: pain is less, no flatus Narrative: no acute events over night. Pt says she is not having the pain any more that she was having before surgery. She is hungry and wants to eat. Objective Vital Signs - 12hr 10/06/18 10/06/18 10/06/18 00:10 03:40 04:27 Temperature 99.7 F H 97.9 F Pulse Rate 78 67 Respiratory 17 18 Rate Blood Pressure 121/69 121/73 O2 Sat by Pulse 100 96 Oximetry 10/06/18 07:04 Temperature 99.5 F Pulse Rate 92 H Respiratory 18 Rate Blood Pressure 127/73 O2 Sat by Pulse 98 Oximetry - General physical appearance well developed, no distress, no pain - Respiratory normal expansion, normal respiratory effort - Abdomen soft, distended, other (appropriate tenderness to palpation, NGT with about 400cc drainage since surgery, less bilious. ) - Labs 10/06/18 04:05 10/06/18 04:05 Diabetes panel 10/06/18 Range/Units 04:05 Sodium 142 (137-145) mmol/L Potassium 3.0 L (3.6-5.0) mmol/L Chloride 109.0 H (98-107) mmol/L Carbon Dioxide 20 L (22-30) mmol/L BUN 6 L (7-17) mg/dL Creatinine 0.5 L (0.7-1.2) mg/dL Glucose 56 L (65-100) mg/dL Calcium 7.8 L (8.4-10.2) mg/dL Calcium panel 10/06/18 Range/Units 04:05 Calcium 7.8 L (8.4-10.2) mg/dL Pituitary panel 10/06/18 Range/Units 04:05 Sodium 142 (137-145) mmol/L Potassium 3.0 L (3.6-5.0) mmol/L Chloride 109.0 H (98-107) mmol/L Carbon Dioxide 20 L (22-30) mmol/L BUN 6 L (7-17) mg/dL Creatinine 0.5 L (0.7-1.2) mg/dL Glucose 56 L (65-100) mg/dL Calcium 7.8 L (8.4-10.2) mg/dL Adrenal panel 10/06/18 Range/Units 04:05 Sodium 142 (137-145) mmol/L Potassium 3.0 L (3.6-5.0) mmol/L Chloride 109.0 H (98-107) mmol/L Carbon Dioxide 20 L (22-30) mmol/L BUN 6 L (7-17) mg/dL Creatinine 0.5 L (0.7-1.2) mg/dL Glucose 56 L (65-100) mg/dL Calcium 7.8 L (8.4-10.2) mg/dL
[2018-10-06] MEDS: PEPCID IV SCH (14:32)
--- NOTE | 2018-10-06 14:39 | Progress Note ---
Assessment and Plan Assessment and plan: Small bowel obstruction s/p diagnostic laparoscopy with lysis of adhesions Still NPO surgery following mesenteric mass s/p resection pathology pending Full code status History Interval history: Abdominal pain Wants to eat food Hospitalist Physical - Physical exam Narrative exam: Gen: Not in acute distress, lying in bed, HEENT: Normocephalic, atraumatic Neck: supple, no JVD Heart: S1 and S2 reg, no murmurs, rubs or gallop Lungs: Clear to auscultation, no wheeze Abd: soft, mild tender, non distended, no BS, Ext: No edema, no clubbing, no cyanosis Neuro: Awake,alert, Oriented X 3. No focal neuro signs Psych: normal mood - Constitutional Vitals: Temp Pulse Resp BP Pulse Ox 99.0 F 69 20 117/63 100 10/06/18 11:07 10/06/18 11:07 10/06/18 11:23 10/06/18 11:07 10/06/18 11:07 General appearance: Present: no acute distress Results - Labs CBC & Chem 7: 10/07/18 07:18 10/06/18 04:05 Labs: Laboratory Last Values WBC 7.5 K/mm3 (4.5-11.0) 10/06/18 04:05 RBC 3.49 M/mm3 (3.65-5.03) L 10/06/18 04:05 Hgb 10.0 gm/dl (10.1-14.3) L 10/06/18 04:05 Hct 29.8 % (30.3-42.9) L 10/06/18 04:05 MCV 85 fl (79-97) 10/06/18 04:05 MCH 29 pg (28-32) 10/06/18 04:05 MCHC 34 % (30-34) 10/06/18 04:05 RDW 13.1 % (13.2-15.2) L 10/06/18 04:05 Plt Count 199 K/mm3 (140-440) 10/06/18 04:05 Lymph % (Auto) 13.6 % (13.4-35.0) 10/06/18 04:05 [place] % (Auto) 7.7 % (0.0-7.3) H 10/06/18 04:05 Eos % (Auto) 0.6 % (0.0-4.3) 10/06/18 04:05 Baso % (Auto) 0.1 % (0.0-1.8) 10/06/18 04:05 Lymph # 1.0 K/mm3 (1.2-5.4) L 10/06/18 04:05 [place] # 0.6 K/mm3 (0.0-0.8) 10/06/18 04:05 Eos # 0.0 K/mm3 (0.0-0.4) 10/06/18 04:05 Baso # 0.0 K/mm3 (0.0-0.1) 10/06/18 04:05 Seg Neutrophils % 78.0 % (40.0-70.0) H 10/06/18 04:05 Seg Neutrophils # 5.9 K/mm3 (1.8-7.7) 10/06/18 04:05 Sodium 142 mmol/L (137-145) 10/06/18 04:05 Potassium 3.0 mmol/L (3.6-5.0) L 10/06/18 04:05 Chloride 109.0 mmol/L (98-107) H 10/06/18 04:05 Carbon Dioxide 20 mmol/L (22-30) L 10/06/18 04:05 16 mmol/L 10/06/18 04:05 BUN 6 mg/dL (7-17) L 10/06/18 04:05 0.5 mg/dL (0.7-1.2) L 10/06/18 04:05 Estimated GFR > 60 ml/min 10/06/18 04:05 12 % 10/06/18 04:05 Glucose 56 mg/dL (65-100) L 10/06/18 04:05 Calcium 7.8 mg/dL (8.4-10.2) L 10/06/18 04:05 0.80 mg/dL (0.1-1.2) 10/05/18 02:55 AST 17 units/L (5-40) 10/05/18 02:55 ALT < 5 units/L (7-56) L 10/05/18 02:55 54 units/L (35-129) 10/05/18 02:55 6.6 g/dL (6.3-8.2) D 10/05/18 02:55 4.0 g/dL (3.9-5) 10/05/18 02:55 1.5 % 10/05/18 02:55 25 units/L (13-60) 10/02/18 20:50 HCG, Qual Negative (Negative) 10/02/18 20:50 Yellow (Yellow) 10/02/18 21:00 Clear (Clear) 10/02/18 21:00 9.0 (5.0-7.0) H 10/02/18 21:00 Ur Specific [place] 1.016 (1.003-1.030) 10/02/18 21:00 30 mg/dl mg/dL (Negative) 10/02/18 21:00 Neg mg/dL (Negative) 10/02/18 21:00 Neg mg/dL (Negative) 10/02/18 21:00 Mod (Negative) 10/02/18 21:00 Neg (Negative) 10/02/18 21:00 Neg (Negative) 10/02/18 21:00 < 2.0 mg/dL (<2.0) 10/02/18 21:00 Ur Leukocyte Esterase Neg (Negative) 10/02/18 21:00 2.0 /HPF (0.0-6.0) 10/02/18 21:00 2.0 /HPF (0.0-6.0) 10/02/18 21:00 U Epithel Cells (Auto) 5.0 /HPF (0-13.0) 10/02/18 21:00 Few /HPF 10/02/18 21:00 Active Medications - Current Medications Current Medications: Generic Name Dose Route Start Last Admin Trade Name Freq PRN Reason Stop Dose Admin Acetaminophen 650 mg 10/03/18 02:36 Tylenol [place] Q4H PRN Pain MILD(1-3)/Fever >100.5/GONCALVES Enoxaparin Sodium 40 mg 10/03/18 10:00 10/06/18 09:08 Lovenox SUB-Q 40 mg QDAY PEPPER Administration Famotidine 20 mg 10/06/18 12:00 10/06/18 14:32 Pepcid IV 20 mg QDAY PEPPER Administration Hydromorphone HCl 1.5 mg 10/03/18 16:37 10/05/18 12:46 Dilaudid IV 1.5 mg Q3H PRN Administration Pain , Severe (7-10) Sodium Chloride 1,000 mls @ 125 mls/hr 10/03/18 03:00 10/05/18 12:53 Nacl 0.9% 1000 Ml IV 125 mls/hr DIRECT PEPPER Administration Ketorolac Tromethamine 30 mg 10/06/18 12:00 10/06/18 11:23 Toradol IV 10/11/18 11:59 30 mg Q6HR PEPPER Administration Ondansetron HCl 4 mg 10/03/18 02:36 10/05/18 12:46 Zofran IV 4 mg Q4H PRN Administration Nausea And Vomiting Prochlorperazine Edisylate 5 mg 10/03/18 11:00 10/03/18 15:54 Compazine IV 5 mg Q4H PRN Administration Nausea And Vomiting Sodium Chloride 10 ml 10/03/18 10:00 10/05/18 22:25 Sodium Chloride Flush Syringe 10 Ml IV 10 ml BID PEPPER Administration Sodium Chloride 10 ml 10/03/18 02:36 10/06/18 09:11 Sodium Chloride Flush Syringe 10 Ml IV 10 ml PRN PRN Administration LINE FLUSH
[2018-10-06] MEDS ORDERED: CHLORASEPTIC MM PRN (14:45)
[2018-10-07] MEDS: TORADOL IV SCH ×4 (05:37→23:32)
[2018-10-07 08:10] LABS: Hematocrit 31.2 % (30.3-42.9); Hemoglobin 10.5 gm/dl (10.1-14.3); Mean Corpuscular HGB Conc 34 % (30-34); Mean Corpuscular Volume 86 fl (79-97); Platelet Count 219 K/mm3 (140-440); Red Blood Count 3.62 M/mm3 (3.65-5.03); Red Cell Distribution Width 13.4 % (13.2-15.2)
--- NOTE | 2018-10-07 09:05 | Progress Note ---
Assessment and Plan POD#1 s/p dx lap with lysis of adhesive band and resection of mensenteric mass causing small bowel obstruction. post op ileus resolving. stable, afebrile. NGT removed, will start on clear liquids and advance as tolerated. If continues to do well possible to d/c as early as tomorrow. hypokalemia, K+ was replaced yesterday, may want to repeat labs. Subjective Date of service: 10/07/18 Patient Reports: Positive: no new complaints (no acute events over night. pt says she passed flatus, and tolerated her NGT clamped all day yesterday with minimal residuals.), feels better, flatus Objective Vital Signs - 12hr 10/07/18 10/07/18 00:09 05:26 Temperature 98.2 F 98.9 F Pulse Rate 67 66 Respiratory 18 18 Rate Blood Pressure 114/55 114/58 [Left] O2 Sat by Pulse 100 99 Oximetry - General physical appearance well developed, no distress, no pain - Respiratory normal expansion, normal respiratory effort - Abdomen soft, distended (incisions c/d/i, appropriatley tender to palpation) - Labs 10/07/18 07:18 10/06/18 04:05
[2018-10-07] MEDS ORDERED: MORPHINE IV PRN (09:07)
[2018-10-07 09:29] LABS: BUN/Creatinine Ratio 12; Blood Urea Nitrogen 6 mg/dL (7-17); Calcium 8.3 mg/dL (8.4-10.2); Hemolysis Index 1
[2018-10-07] MEDS: PEPCID IV SCH (09:39)
[2018-10-07] MEDS: LOVENOX SUB-Q SCH (09:39)
[2018-10-07] MEDS: SODIUM CHLORIDE FLUSH SYRINGE 10 ML IV SCH ×2 (09:40→22:44)
[2018-10-07] MEDS: NACL 0.9% 1000 ML 1,000 ML IV SCH ×2 (13:15→22:44)
--- NOTE | 2018-10-07 14:47 | Progress Note ---
Assessment and Plan Assessment and plan: Small bowel obstruction s/p diagnostic laparoscopy with lysis of adhesions Started on Clear liquid diet surgery following Discussed with Dr. Valdez mesenteric mass s/p resection pathology pending Full code status History Interval history: Abdominal pain NG tube removed, Started on clear liquid diet Hospitalist Physical - Physical exam Narrative exam: Gen: Not in acute distress, lying in bed, HEENT: Normocephalic, atraumatic Neck: supple, no JVD Heart: S1 and S2 reg, no murmurs, rubs or gallop Lungs: Clear to auscultation, no wheeze Abd: soft, mild tender, non distended, no BS, Ext: No edema, no clubbing, no cyanosis Neuro: Awake,alert, Oriented X 3. No focal neuro signs Psych: normal mood - Constitutional Vitals: Temp Pulse Resp BP Pulse Ox 98.9 F 66 18 114/58 99 10/07/18 05:26 10/07/18 05:26 10/07/18 05:26 10/07/18 05:26 10/07/18 05:26 General appearance: Present: no acute distress Results - Labs CBC & Chem 7: 10/07/18 07:18 10/07/18 00:40 Labs: Laboratory Last Values WBC 6.7 K/mm3 (4.5-11.0) 10/07/18 07:18 RBC 3.62 M/mm3 (3.65-5.03) L 10/07/18 07:18 Hgb 10.5 gm/dl (10.1-14.3) 10/07/18 07:18 Hct 31.2 % (30.3-42.9) 10/07/18 07:18 MCV 86 fl (79-97) 10/07/18 07:18 MCH 29 pg (28-32) 10/07/18 07:18 MCHC 34 % (30-34) 10/07/18 07:18 RDW 13.4 % (13.2-15.2) 10/07/18 07:18 Plt Count 219 K/mm3 (140-440) 10/07/18 07:18 Lymph % (Auto) 13.6 % (13.4-35.0) 10/06/18 04:05 [place] % (Auto) 7.7 % (0.0-7.3) H 10/06/18 04:05 Eos % (Auto) 0.6 % (0.0-4.3) 10/06/18 04:05 Baso % (Auto) 0.1 % (0.0-1.8) 10/06/18 04:05 Lymph # 1.0 K/mm3 (1.2-5.4) L 10/06/18 04:05 [place] # 0.6 K/mm3 (0.0-0.8) 10/06/18 04:05 Eos # 0.0 K/mm3 (0.0-0.4) 10/06/18 04:05 Baso # 0.0 K/mm3 (0.0-0.1) 10/06/18 04:05 Seg Neutrophils % 78.0 % (40.0-70.0) H 10/06/18 04:05 Seg Neutrophils # 5.9 K/mm3 (1.8-7.7) 10/06/18 04:05 Sodium 142 mmol/L (137-145) 10/07/18 00:40 Potassium 3.8 mmol/L (3.6-5.0) D 10/07/18 00:40 Chloride 111.3 mmol/L (98-107) H 10/07/18 00:40 Carbon Dioxide 15 mmol/L (22-30) L 10/07/18 00:40 20 mmol/L 10/07/18 00:40 BUN 6 mg/dL (7-17) L 10/07/18 00:40 0.5 mg/dL (0.7-1.2) L 10/07/18 00:40 Estimated GFR > 60 ml/min 10/07/18 00:40 12 % 10/07/18 00:40 Glucose 57 mg/dL (65-100) L 10/07/18 00:40 Calcium 8.3 mg/dL (8.4-10.2) L 10/07/18 00:40 0.80 mg/dL (0.1-1.2) 10/05/18 02:55 AST 17 units/L (5-40) 10/05/18 02:55 ALT < 5 units/L (7-56) L 10/05/18 02:55 54 units/L (35-129) 10/05/18 02:55 6.6 g/dL (6.3-8.2) D 10/05/18 02:55 4.0 g/dL (3.9-5) 10/05/18 02:55 1.5 % 10/05/18 02:55 25 units/L (13-60) 10/02/18 20:50 HCG, Qual Negative (Negative) 10/02/18 20:50 Yellow (Yellow) 10/02/18 21:00 Clear (Clear) 10/02/18 21:00 9.0 (5.0-7.0) H 10/02/18 21:00 Ur Specific [place] 1.016 (1.003-1.030) 10/02/18 21:00 30 mg/dl mg/dL (Negative) 10/02/18 21:00 Neg mg/dL (Negative) 10/02/18 21:00 Neg mg/dL (Negative) 10/02/18 21:00 Mod (Negative) 10/02/18 21:00 Neg (Negative) 10/02/18 21:00 Neg (Negative) 10/02/18 21:00 < 2.0 mg/dL (<2.0) 10/02/18 21:00 Ur Leukocyte Esterase Neg (Negative) 10/02/18 21:00 2.0 /HPF (0.0-6.0) 10/02/18 21:00 2.0 /HPF (0.0-6.0) 10/02/18 21:00 U Epithel Cells (Auto) 5.0 /HPF (0-13.0) 10/02/18 21:00 Few /HPF 10/02/18 21:00 Active Medications - Current Medications Current Medications: Generic Name Dose Route Start Last Admin Trade Name Freq PRN Reason Stop Dose Admin Acetaminophen 650 mg 10/03/18 02:36 Tylenol [place] Q4H PRN Pain MILD(1-3)/Fever >100.5/GONCALVES Enoxaparin Sodium 40 mg 10/03/18 10:00 10/07/18 09:39 Lovenox SUB-Q 40 mg QDAY PEPPER Administration Famotidine 20 mg 10/06/18 12:00 10/07/18 09:39 Pepcid IV 20 mg QDAY PEPPER Administration Sodium Chloride 1,000 mls @ 125 mls/hr 10/03/18 03:00 10/07/18 13:15 Nacl 0.9% 1000 Ml IV 125 mls/hr DIRECT PEPPER Administration Ketorolac Tromethamine 30 mg 10/06/18 12:00 10/07/18 13:09 Toradol IV 10/11/18 11:59 30 mg Q6HR PEPPER Administration Morphine Sulfate 2 mg 10/07/18 09:07 Morphine IV Q4H PRN Pain, Moderate (4-6) Ondansetron HCl 4 mg 10/03/18 02:36 10/05/18 12:46 Zofran IV 4 mg Q4H PRN Administration Nausea And Vomiting Phenol 1 spray 10/06/18 14:45 Chloraseptic MM Q4H PRN Sore Throat Prochlorperazine Edisylate 5 mg 10/03/18 11:00 10/03/18 15:54 Compazine IV 5 mg Q4H PRN Administration Nausea And Vomiting Sodium Chloride 10 ml 10/03/18 10:00 10/07/18 09:40 Sodium Chloride Flush Syringe 10 Ml IV 10 ml BID PEPPER Administration Sodium Chloride 10 ml 10/03/18 02:36 10/06/18 09:11 Sodium Chloride Flush Syringe 10 Ml IV 10 ml PRN PRN Administration LINE FLUSH
[2018-10-08 05:47] LABS: Hematocrit 30.8 % (30.3-42.9); Hemoglobin 10.3 gm/dl (10.1-14.3); Mean Corpuscular HGB Conc 33 % (30-34); Mean Corpuscular Volume 86 fl (79-97); Red Blood Count 3.59 M/mm3 (3.65-5.03); Red Cell Distribution Width 13.3 % (13.2-15.2)
[2018-10-08 05:49] LABS: Platelet Count 170 K/mm3 (140-440)
[2018-10-08 06:01] LABS: BUN/Creatinine Ratio 8; Blood Urea Nitrogen 3 mg/dL (7-17); Calcium 8.3 mg/dL (8.4-10.2); Hemolysis Index 31
[2018-10-08] MEDS: TORADOL IV SCH ×2 (06:44→14:04)
[2018-10-08 08:31] VITALS: BP 118/61
[2018-10-08] MEDS: LOVENOX SUB-Q SCH (10:40)
[2018-10-08] MEDS: PEPCID IV SCH (10:42)
--- NOTE | 2018-10-08 10:52 | Progress Note ---
Assessment and Plan POD#2 s/p dx lap with enterolysis and excision of mesenteric mass for relief of SBO. post op ileus resolved. tolerating diet, afebrile, stable. ok to d/c home and advance diet slowly as tolerated. follow up with dr mendoza in two weeks. [phone] Subjective Date of service: 10/08/18 Patient Reports: Positive: feels better, flatus, bowel movement (no acute events over night) Objective Vital Signs - 12hr 10/07/18 10/08/18 10/08/18 23:31 04:02 07:33 Temperature 98.7 F 98.2 F Pulse Rate 59 L 68 63 Respiratory 20 18 Rate Blood Pressure 100/55 125/76 Blood Pressure [Left] O2 Sat by Pulse 99 100 100 Oximetry 10/08/18 08:00 Temperature 98.2 F Pulse Rate 67 Respiratory 18 Rate Blood Pressure Blood Pressure 118/61 [Left] O2 Sat by Pulse Oximetry - General physical appearance well developed, well nourished, no distress - Abdomen soft, not tender, other (incisions c/d/i) - Labs 10/08/18 04:23 10/08/18 04:23 Diabetes panel 10/08/18 Range/Units 04:23 Sodium 138 (137-145) mmol/L Potassium 3.7 (3.6-5.0) mmol/L Chloride 110.9 H (98-107) mmol/L Carbon Dioxide 16 L (22-30) mmol/L BUN 3 L (7-17) mg/dL Creatinine 0.4 L (0.7-1.2) mg/dL Glucose 94 (65-100) mg/dL Calcium 8.3 L (8.4-10.2) mg/dL Calcium panel 10/08/18 Range/Units 04:23 Calcium 8.3 L (8.4-10.2) mg/dL Pituitary panel 10/08/18 Range/Units 04:23 Sodium 138 (137-145) mmol/L Potassium 3.7 (3.6-5.0) mmol/L Chloride 110.9 H (98-107) mmol/L Carbon Dioxide 16 L (22-30) mmol/L BUN 3 L (7-17) mg/dL Creatinine 0.4 L (0.7-1.2) mg/dL Glucose 94 (65-100) mg/dL Calcium 8.3 L (8.4-10.2) mg/dL Adrenal panel 10/08/18 Range/Units 04:23 Sodium 138 (137-145) mmol/L Potassium 3.7 (3.6-5.0) mmol/L Chloride 110.9 H (98-107) mmol/L Carbon Dioxide 16 L (22-30) mmol/L BUN 3 L (7-17) mg/dL Creatinine 0.4 L (0.7-1.2) mg/dL Glucose 94 (65-100) mg/dL Calcium 8.3 L (8.4-10.2) mg/dL
--- NOTE | 2018-10-08 11:48 | Discharge Summary ---
Providers - Providers Date of Admission: 10/03/18 03:24 Date of discharge: 10/08/18 Attending physician: NINFA CLIFFORD [facility] Condition: Fair Disposition: [id number] TO HOME OR SELFCARE Exam - Constitutional Vitals: Temp Pulse Resp BP Pulse Ox 98.2 F 67 18 118/61 100 10/08/18 08:00 10/08/18 08:00 10/08/18 08:00 10/08/18 08:00 10/08/18 07:33 Plan Activity: advance as tolerated Diet: other (Full liquid diet, advance as tolerated) Additional Instructions: 1.Follow up with PCP in 1 week. 2.Follow up with Dr. Valdez, Surgeon in 2 weeks [facility] - 3-5 Days Prescriptions: Famotidine [Pepcid] 20 mg PO BID #30 tablet oxyCODONE /ACETAMINOPHEN [Percocet 5/325] 1 tab PO Q6HR PRN #20 tablet PRN Reason: Pain
== END 2018-10-08 14:00 | disposition home or self-care (01) | DRG 358 ==
LOC: ED 20:30 → 3B-SURG 10-03 03:24
PROVIDERS: ADMIT Internal Medicine; ATTEND Internal Medicine
PROC: 0DBV4ZZ Excision of Mesentery, Percutaneous Endoscopic Approach (ICD-10-PCS; principal; 2018-10-05)
DX: K56.609 Unspecified intestinal obstruction, unspecified as to partial versus complete obstruction (principal); K56.7 Ileus, unspecified; E87.6 Hypokalemia; N20.0 Calculus of kidney; R19.07 Generalized intra-abdominal and pelvic swelling, mass and lump; Z82.49 Family history of ischemic heart disease and other diseases of the circulatory system
CPT/HCPCS: 36415; 74178; 80048; 80053; 81001; 83690; 84703; 85025; 85027; 88307; 88342; 96361; 96374; 96375; 96376; G0378; J0330; J0780; J1170; J1650; J1885; J1956; J2250; J2270; J2405; J2704; J2710; J2765; J3480; J7030; J7120; Q9967